=== PATIENT | female | born 1990 | race Caucasian/White ===

== ENCOUNTER 2017-10-29 19:36 | Emergency (ER) | payer OTHER | END 2017-10-29 21:30 | disposition home or self-care (01) | LOC: E/R 19:36 | DX: J20.9 Acute bronchitis, unspecified (principal); J32.9 Chronic sinusitis, unspecified | CPT/HCPCS: 99284; Z7502 ==

== ENCOUNTER 2017-12-22 22:38 | Emergency (ER) | payer OTHER ==
[2017-12-23] MEDS: ONDANSETRON (ODT) 4 MG TAB ODT (01:53)
[2017-12-23 01:57] LABS: URINE PH (Dip) POC 6.5 (5.0-8.5)
[2017-12-23 01:57] LABS: URINE BLOOD (Dip) POC Negative (NEGATIVE); URINE GLUCOSE (Dip) POC Negative (NEGATIVE); URINE KETONES (Dip) POC 3+ (NEGATIVE); URINE LEUKOCYTE EST (Dip) POC Negative (NEGATIVE); URINE NITRITE (Dip) POC Negative (NEGATIVE); URINE TOTAL PROTEIN POC 2+ (NEGATIVE)
[2017-12-23 02:28] LABS: ADD UMIC YES; UR ASCORBIC ACID 20 mg/dL (NEGATIVE); UR BACTERIA FEW /HPF (NONE SEEN); UR BILIRUBIN (Dip) 1+ mg/dL (NEGATIVE); UR BLOOD (Dip) 2+ mg/dL (NEGATIVE); UR CLARITY SLIGHTLY CLOUDY (CLEAR); UR COLOR AMBER (YELLOW); UR GLUCOSE (Dip) 1+ mg/dL (NEGATIVE); UR KETONES (Dip) 2+ mg/dL (NEGATIVE); UR LEUKOCYTE ESTERASE (Dip) NEGATIVE Leu/ul (NEGATIVE); UR MUCUS MANY /HPF (NONE SEEN); UR NITRITE (Dip) NEGATIVE (NEGATIVE); UR RBC 2 /HPF (0-5); UR SPECIFIC GRAVITY (Dip) 1.035 (1.003-1.030); UR SQUAMOUS EPITHELIAL CELL MODERATE /HPF (FEW); UR TOTAL PROTEIN (Dip) 2+ mg/dl (NEGATIVE); UR UROBILINOGEN (Dip) 2+ mg/dL (NEGATIVE); UR WBC 2 /HPF (0-5)
[2017-12-23 02:51] LABS: ADD MAN DIFF? NO
[2017-12-23 02:56] LABS: BASOPHIL # 0.1 10^3/ul (0.0-0.1); BASOPHILS % 0.8 % (0.0-2.0); EOSINOPHILS % 0.5 % (0.0-7.0); HEMATOCRIT 39.2 % (37.0-47.0); HEMOGLOBIN 13.3 g/dl (12.0-16.0); LYMPHOCYTES # 2.3 10^3/ul (0.8-2.9); LYMPHOCYTES % 30.8 % (15.0-51.0); MEAN CORPUSCULAR HEMOGLOBIN 29.1 pg (29.0-33.0); MEAN CORPUSCULAR HGB CONC 33.9 g/dl (32.0-37.0); MEAN CORPUSCULAR VOLUME 85.8 fl (82.0-101.0); MEAN PLATELET VOLUME 12.5 fl (7.4-10.4); MONOCYTE # 0.5 10^3/ul (0.3-0.9); NEUTROPHIL # 4.4 10^3/ul (1.6-7.5); NEUTROPHILS % 60.6 % (39.0-77.0); PLATELET COUNT 227 10^3/UL (140-415); RED BLOOD COUNT 4.57 10^6/ul (4.20-5.40)
[2017-12-23 02:56] LABS: WHITE BLOOD COUNT 7.3 10^3/ul (4.8-10.8)
[2017-12-23 04:25] LABS: ALANINE AMINOTRANSFERASE 49 IU/L (13-69); ALBUMIN 4.7 g/dl (3.3-4.9); ALBUMIN/GLOBULIN RATIO 1.42; ALKALINE PHOSPHATASE 66 IU/L (42-121); ANION GAP 21 (8-16); ASPARTATE AMINO TRANSFERASE 30 IU/L (15-46); BILIRUBIN,INDIRECT 0.1 mg/dl (0-1.1); BILIRUBIN,TOTAL 0.1 mg/dl (0.2-1.3); BLOOD UREA NITROGEN 10 mg/dl (7-20); CALCIUM 10.2 mg/dl (8.4-10.2); CARBON DIOXIDE 23 mmol/L (21-31); CHLORIDE 104 mmol/L (97-110); GLUCOSE 98 mg/dl (70-220); POTASSIUM 4.1 mmol/L (3.5-5.1); SODIUM 144 mmol/L (135-144)
== END 2017-12-23 04:58 | disposition home or self-care (01) ==
LOC: FTE 22:38
DX: O26.891 Other specified pregnancy related conditions, first trimester (principal); R10.30 Lower abdominal pain, unspecified; O21.0 Mild hyperemesis gravidarum; Z3A.08 8 weeks gestation of pregnancy
CPT/HCPCS: 76801; 80053; 81001; 81003; 84702; 85025; 86900; 86901; 99284-25

== ENCOUNTER 2018-07-07 16:20 | Inpatient (IN) | payer OTHER ==
[2018-07-07] MEDS: LACTATED RINGER'S 1,000 ML IV ×2 (16:30→18:41)
[2018-07-07 18:03] LABS: RUPTURE FETAL MEMBRANES NEGATIVE (NEGATIVE)
[2018-07-07] MEDS: BETAMET NA PHOS/AC(6 MG/ML) 5ML INJ IM (18:48)
[2018-07-07] MEDS: TERBUTALINE 1 MG/ML INJ SC ×2 (18:49→21:47)
[2018-07-07 19:08] LABS: ADD UMIC YES; UR ASCORBIC ACID NEGATIVE (NEGATIVE); UR BACTERIA FEW /HPF (NONE SEEN); UR BILIRUBIN (Dip) NEGATIVE (NEGATIVE); UR BLOOD (Dip) NEGATIVE (NEGATIVE); UR CLARITY CLEAR (CLEAR); UR COLOR YELLOW (YELLOW); UR GLUCOSE (Dip) NEGATIVE (NEGATIVE); UR KETONES (Dip) NEGATIVE (NEGATIVE); UR LEUKOCYTE ESTERASE (Dip) 2+ Leu/ul (NEGATIVE); UR NITRITE (Dip) NEGATIVE (NEGATIVE); UR RBC 1 /HPF (0-5); UR SPECIFIC GRAVITY (Dip) 1.013 (1.003-1.030); UR SQUAMOUS EPITHELIAL CELL FEW /HPF (FEW); UR TOTAL PROTEIN (Dip) NEGATIVE (NEGATIVE); UR UROBILINOGEN (Dip) NEGATIVE (NEGATIVE); UR WBC 1 /HPF (0-5)
[2018-07-07] MEDS ORDERED: IBUPROFEN 600 MG TAB PO (21:30)
[2018-07-07] MEDS ORDERED: OXYTOCIN 30 UNITS/LR 500 ML IV (21:30)
[2018-07-07] MEDS ORDERED: METHYLERGONOVINE 0.2 MG INJ IM (21:30)
[2018-07-07] MEDS ORDERED: MISOPROSTOL 200 MCG TAB PR (21:30)
[2018-07-07] MEDS: LACTATED RINGER'S 1,000 ML IV* (21:46)
[2018-07-07 22:21] LABS: ADD MAN DIFF? NO
[2018-07-07 22:27] LABS: BASOPHIL # 0.1 10^3/ul (0.0-0.1); BASOPHILS % 0.7 % (0.0-2.0); EOSINOPHILS # 0.1 10^3/ul (0.0-0.5); EOSINOPHILS % 0.9 % (0.0-7.0); HEMATOCRIT 30.8 % (37.0-47.0); HEMOGLOBIN 9.9 g/dl (12.0-16.0); LYMPHOCYTES # 1.7 10^3/ul (0.8-2.9); LYMPHOCYTES % 18.9 % (15.0-51.0); MEAN CORPUSCULAR HEMOGLOBIN 28.2 pg (29.0-33.0); MEAN CORPUSCULAR HGB CONC 32.1 g/dl (32.0-37.0); MEAN CORPUSCULAR VOLUME 87.7 fl (82.0-101.0); MONOCYTE # 0.7 10^3/ul (0.3-0.9); MONOCYTES % 7.4 % (0.0-11.0); NEUTROPHIL # 6.3 10^3/ul (1.6-7.5); NEUTROPHILS % 69.7 % (39.0-77.0); PLATELET COUNT 188 10^3/UL (140-415); RED BLOOD COUNT 3.51 10^6/ul (4.20-5.40); RED CELL DISTRIBUTION WIDTH 14.5 % (11.5-14.5)
[2018-07-07 22:29] LABS: INR 0.94; PROTIME 12.7 Sec (11.9-14.9)
[2018-07-07 22:30] LABS: PARTIAL THROMBOPLASTIN TIME 27.2 Sec (25.0-35.0)
[2018-07-07 23:03] LABS: HEPATITIS B SURFACE ANTIGEN NEGATIVE (NEGATIVE)
[2018-07-08] MEDS: CEFAZOLIN 2 GM/50 ML (PMX) 50 ML IVPB ×3 (02:17→18:04)
[2018-07-08] MEDS: TERBUTALINE 1 MG/ML INJ SC (02:20)
[2018-07-08] MEDS: NIFEdipine 10 MG CAP PO ×4 (07:16→18:06)
[2018-07-08] MEDS: LACTATED RINGER'S 1,000 ML IV* ×2 (07:16→16:43)
[2018-07-08] MEDS ORDERED: ACETAMINOPHEN 325 MG TAB PO (12:00)
[2018-07-08 18:35] LABS: RAPID PLASMA REAGIN NONREACTIVE (NR)
[2018-07-08] MEDS: BETAMET NA PHOS/AC(6 MG/ML) 5ML INJ IM (18:40)
[2018-07-09] MEDS: NIFEdipine 10 MG CAP PO ×2 (00:16→06:00)
[2018-07-09] MEDS: CEFAZOLIN 2 GM/50 ML (PMX) 50 ML IVPB ×3 (02:00→18:18)
[2018-07-09] MEDS: LACTATED RINGER'S 1,000 ML IV* ×3 (02:01→17:09)
[2018-07-10] MEDS: LACTATED RINGER'S 1,000 ML IV* ×4 (00:05→19:57)
[2018-07-10] MEDS: CEFAZOLIN 2 GM/50 ML (PMX) 50 ML IVPB ×3 (02:06→18:07)
[2018-07-10] MEDS: OXYTOCIN 30 UNITS/LR 500 ML IV (19:59)
[2018-07-10 20:09] LABS: ADD MAN DIFF? NO
[2018-07-10 20:10] LABS: BASOPHILS % 0.6 % (0.0-2.0); EOSINOPHILS % 0.3 % (0.0-7.0); HEMOGLOBIN 9.3 g/dl (12.0-16.0); LYMPHOCYTES # 1.4 10^3/ul (0.8-2.9); LYMPHOCYTES % 21.6 % (15.0-51.0); MEAN CORPUSCULAR HEMOGLOBIN 28.5 pg (29.0-33.0); MEAN CORPUSCULAR HGB CONC 32.1 g/dl (32.0-37.0); MEAN PLATELET VOLUME 11.7 fl (7.4-10.4); MONOCYTE # 0.3 10^3/ul (0.3-0.9); MONOCYTES % 3.9 % (0.0-11.0); NEUTROPHIL # 4.6 10^3/ul (1.6-7.5); NEUTROPHILS % 72.2 % (39.0-77.0); PLATELET COUNT 163 10^3/UL (140-415); RED BLOOD COUNT 3.26 10^6/ul (4.20-5.40); RED CELL DISTRIBUTION WIDTH 14.6 % (11.5-14.5)
[2018-07-10 20:10] LABS: WHITE BLOOD COUNT 6.4 10^3/ul (4.8-10.8)
[2018-07-10 20:28] LABS: INR 0.92; PROTIME 12.4 Sec (11.9-14.9)
[2018-07-10 20:29] LABS: PARTIAL THROMBOPLASTIN TIME 23.4 Sec (25.0-35.0)
[2018-07-11] MEDS: CEFAZOLIN 2 GM/50 ML (PMX) 50 ML IVPB ×2 (03:13→09:55)
[2018-07-11] MEDS: LACTATED RINGER'S 1,000 ML IV* ×2 (08:49→19:25)
[2018-07-11] MEDS: BUTORPHANOL 2 MG INJ IV (16:05)
[2018-07-11] MEDS: CARBOPROST 250 MCG INJ IM (16:05)
[2018-07-11] MEDS: LIDOCAINE 1% (MPF) 30 ML INJ INJ (16:07)
[2018-07-11] MEDS: OXYTOCIN 30 UNITS/LR 500 ML IV ×3 (16:19→23:32)
[2018-07-11] MEDS ORDERED: MISOPROSTOL 200 MCG TAB PR (18:00)
[2018-07-11] MEDS ORDERED: CARBOPROST 250 MCG INJ IM (18:00)
[2018-07-11] MEDS ORDERED: ZOLPIDEM 5 MG TAB PO (18:00)
[2018-07-11] MEDS ORDERED: METHYLERGONOVINE 0.2 MG INJ IM (18:00)
[2018-07-11] MEDS ORDERED: HYDROCODONE/APAP (5/325) TAB PO ×2 (18:00)
[2018-07-11] MEDS ORDERED: DIBUCAINE 1% 30 GM OINT PR (18:00)
[2018-07-11] MEDS: WITCH HAZEL/GLYCERIN PAD PR (18:46)
[2018-07-11] MEDS: LANOLIN 7 GM TUBE TOP (18:46)
[2018-07-11] MEDS: BENZOCAINE 20% 56 ML SPRAY TOP (18:46)
[2018-07-11] MEDS: IBUPROFEN 600 MG TAB PO ×2 (18:46→23:29)
[2018-07-11] MEDS: MAGNESIUM HYDROXIDE 30ML CUP PO (21:00)
[2018-07-11] MEDS: SENNA/DOCUSATE NA (8.6MG/50MG) TAB PO (22:17)
[2018-07-12] MEDS: LACTATED RINGER'S 1,000 ML IV* ×3 (01:50→17:50)
[2018-07-12] MEDS: IBUPROFEN 600 MG TAB PO ×4 (06:11→23:42)
[2018-07-12 07:10] LABS: ADD MAN DIFF? NO
[2018-07-12 07:11] LABS: WHITE BLOOD COUNT 10.8 10^3/ul (4.8-10.8)
[2018-07-12 07:11] LABS: BASOPHILS % 0.4 % (0.0-2.0); EOSINOPHILS # 0.1 10^3/ul (0.0-0.5); EOSINOPHILS % 0.8 % (0.0-7.0); HEMOGLOBIN 7.2 g/dl (12.0-16.0); LYMPHOCYTES # 1.9 10^3/ul (0.8-2.9); LYMPHOCYTES % 17.4 % (15.0-51.0); MEAN CORPUSCULAR HEMOGLOBIN 28.9 pg (29.0-33.0); MEAN CORPUSCULAR HGB CONC 32.7 g/dl (32.0-37.0); MEAN CORPUSCULAR VOLUME 88.4 fl (82.0-101.0); MEAN PLATELET VOLUME 12.5 fl (7.4-10.4); MONOCYTE # 0.9 10^3/ul (0.3-0.9); MONOCYTES % 7.8 % (0.0-11.0); NEUTROPHIL # 7.9 10^3/ul (1.6-7.5); NEUTROPHILS % 72.6 % (39.0-77.0); PLATELET COUNT 149 10^3/UL (140-415); RED BLOOD COUNT 2.49 10^6/ul (4.20-5.40); RED CELL DISTRIBUTION WIDTH 14.2 % (11.5-14.5)
[2018-07-12] MEDS: SENNA/DOCUSATE NA (8.6MG/50MG) TAB PO ×2 (09:35→20:28)
[2018-07-12] MEDS: MAGNESIUM HYDROXIDE 30ML CUP PO ×2 (09:35→20:28)
[2018-07-13] MEDS: LACTATED RINGER'S 1,000 ML IV* ×2 (01:50→09:50)
[2018-07-13] MEDS: IBUPROFEN 600 MG TAB PO ×2 (07:26→12:38)
[2018-07-13] MEDS: DIPHTH/TET/ACEL PERTUSS (ADULT) 0.5 ML VIAL IM* (09:00)
[2018-07-13] MEDS: MEASLES,MUMPS,RUBELLA VACCINE INJ SC* (09:00)
[2018-07-13] MEDS: VARICELLA VACCINE LIVE/PF 1,350 UNIT/0.5 ML ML SC* (09:00)
[2018-07-13] MEDS: MAGNESIUM HYDROXIDE 30ML CUP PO (09:08)
[2018-07-13] MEDS: SENNA/DOCUSATE NA (8.6MG/50MG) TAB PO (09:08)
== END 2018-07-13 15:24 | disposition home or self-care (01) | DRG 775 ==
LOC: OBT 16:20 → L-D 07-08 01:45 → PP1 07-11 17:40 → L-D 16:22 → OBT 21:15 → L-D 21:15
PROC: 10E0XZZ Delivery of Products of Conception, External Approach (ICD-10-PCS; principal; 2018-07-11)
PROC: 0HQ9XZZ Repair Perineum Skin, External Approach (ICD-10-PCS; 2018-07-11)
PROC: 3E033VJ Introduction of Other Hormone into Peripheral Vein, Percutaneous Approach (ICD-10-PCS; 2018-07-11)
DX: O69.81X0 Labor and delivery complicated by cord around neck, without compression, not applicable or unspecified (principal); O70.0 First degree perineal laceration during delivery; Z3A.37 37 weeks gestation of pregnancy; Z37.0 Single live birth
CPT/HCPCS: 76818; 81001; 84112; 85025; 85610; 85730; 86592; 86850; 86870; 86900; 86901; 87340; 90715; 90716